=== PATIENT | female | born 1980 | race African-American/Black ===

== ENCOUNTER 2021-04-09 17:26 | Emergency (ER) | payer MEDICAID ==
[~2021-04-09] VITALS: Ht 165.1 cm; Wt 124.7 kg
--- NOTE | 2021-04-09 18:07 | NUR ---
PATIENT BIBS FOR L BREAST ABSCESS. PT ALERT AND ORIENTED X4. PATIENT STATES SHE HAD PUT WARM COMPRESS ON THE ABSCESS ON HER LEFT BREAST. PATIENT C/O 5/10 PAIN AT THE MOMENT. MARKED AREA OF ABSCESS.
[2021-04-09] MEDS ORDERED: CLINDAMYCIN HCL 150 MG CAPSULE PO ONE (18:19)
[2021-04-09] MEDS: CLINDAMYCIN HCL 150 MG CAPSULE PO ONE (18:21)
[2021-04-09] MEDS ORDERED: CLIN300C12 PO (18:48)
--- NOTE | 2021-04-09 18:52 | NUR ---
Patient discharged to home in stable condition. Written and verbal after care instructions given. Patient verbalizes understanding of instruction.
[2021-04-09 18:53] VITALS: BP 120/72
== END 2021-04-09 18:54 | disposition home or self-care (01) ==
LOC: ER 17:28
DX: N61.1 Abscess of the breast and nipple (principal); Z88.6 Allergy status to analgesic agent; Z88.5 Allergy status to narcotic agent; Z88.0 Allergy status to penicillin
CPT/HCPCS: 76642-LT-TC

== ENCOUNTER 2021-04-13 09:33 | Emergency (ER) | payer MEDICAID ==
[~2021-04-13] VITALS: Ht 165.1 cm; Wt 124.7 kg
[~2021-04-13 09:33] MED LIST: CLIN300C12 PO
[2021-04-13 09:40] VITALS: BP 146/74
== END 2021-04-13 09:52 | disposition home or self-care (01) ==
LOC: ER 09:37
DX: N61.0 Mastitis without abscess (principal); Z88.0 Allergy status to penicillin; Z88.6 Allergy status to analgesic agent; Z88.5 Allergy status to narcotic agent; Z88.8 Allergy status to other drugs, medicaments and biological substances